=== PATIENT | female | born 1995 | race Caucasian/White ===

== ENCOUNTER 2018-04-02 17:11 | Outpatient (REF) | payer SELFPAY ==
[2018-04-02 20:41] LABS: *AMPHETAMINES SCREEN URINE Negative (Negative); *BARBITURATES SCREEN URINE Negative (Negative); *BENZODIAZEPINES SCREEN URINE Negative (Negative); Cannabinoids THC POSITIVE (Negative); Cocaine Screen,Urine Negative (Negative); METHADONE URINE SCREEN Negative (Negative); OPIATES URINE SCREEN Negative (Negative); Tricyclic Antidepressants Negative (Negative)
[2018-04-07 14:18] LABS: Buprenorphine Negative; Norbuprenorphine Negative
== END 2018-04-02 17:12 ==
LOC: LBN 17:11
PROVIDERS: Visit Provider Midwife
DX: Z34.91 Encounter for supervision of normal pregnancy, unspecified, first trimester (principal)
CPT/HCPCS: 80307; 87077; 87086

== ENCOUNTER 2019-11-09 10:40 | Emergency (ER) | payer MEDICAID, SELFPAY ==
[2019-11-09 10:44] VITALS: BP 139/91; PULSE 88; TEMP 36.5; O2SAT 96
--- NOTE | 2019-11-09 10:53 | W.ED.GENAD ---
Discharge Plan Disposition Patient Disposition: HOME Condition: Improving Discharge Details Chief Complaint: Sorethroat Clinical Impression: Exudative pharyngitis Primary Care Provider: None,None ED Provider: Matthew Cruz Home Meds and New Rx's Prescriptions: New penicillin V potassium 500 mg tablet 500 mg PO QID 10 Days Qty: 40 RF: 0 Cepacol Sore Throat (aster-men) 15-2.6 mg lozenge 1 john MM Q2H PRNQty: 16 RF: 0 No Action citalopram [Celexa] 40 MG tablet 40 mg PO DAILY RF: 0 acetaminophen 500 mg Tablet 1,000 mg PO QID PRNRF: 0 Discharge Instructions Instructions: Pharyngitis (ED) Additional Instructions: Continue small, frequent sips of fluids to maintain hydration. May use popsicles to soothe the throat. Please take penicillin as prescribed. Tylenol and ibuprofen as needed for pain. Return if you have difficulty swallowing, begin to drool, or any other acute concerns. Medical Decision Making 24-year-old female presents with day 2 of sore throat and mild bilateral ear pain. Her exam is consistent with acute exudative pharyngitis without evidence of sinusitis or otitis media. States she has tolerated penicillin in the past and and therefore I will place her on a course of penicillin for exudative pharyngitis. She is stable and appropriate for outpatient management. She understands indications to seek reevaluation. HPI General Mode of arrival: ambulatory. Date/Time Provider Initiated Documentation: 11/09/19 10:43. Limitations to Documentation: no limitations. Information obtained by: patient. History of Present Illness 24 year old F presents to the emergency department with the chief complaint of Sore throat for 2 days, described as moderate, Quality is described as dull and constant, and is localized to the mouth. Patient reports no radiation. Patient started experiencing this hour(s) and it has been constant. No relieving factors improve symptom(s), No exacerbating factors reported . Patient notes other (No change to voice, no drooling); denies loss of appetite and nausea/vomiting. Patient did receive the following treatments prior to arrival, other (Acetaminophen) Related Data Home Medications Medication Instructions Recorded Confirmed citalopram [Celexa] 40 mg PO DAILY tab-cap 02/20/18 11/09/19 acetaminophen 1,000 mg PO QID PRN 11/09/19 11/09/19 benzocaine-menthol [Cepacol Sore 1 john MM Q2H PRN #16 each 11/09/19 Throat (aster-men)] penicillin V potassium 500 mg PO QID 10 Days #40 tab 11/09/19 Previous Rx's Medication Instructions Recorded benzocaine-menthol [Cepacol Sore 1 john MM Q2H PRN #16 each 11/09/19 Throat (aster-men)] penicillin V potassium 500 mg PO QID 10 Days #40 tab 11/09/19 Allergies Allergy/AdvReac Type Severity Reaction Status Date / Time cephalexin monohydrate Allergy Severe DIFFICULTY Unverified 11/09/19 10:47 [From Keflex] BREATHING General Stated Complaint: Sorethroat ANGELA: 4 Review of Systems Narrative: 6 systems reviewed and otherwise negative. No known sick contacts or travel [facility] Medical History Anxiety and depression Seasonal asthma Surgical History (Updated 05/21/18 @ 14:[address] [place]) Dilation and curettage (04/02/08) Termination of at 9 wks. Family History Grandmother Essential hypertension Great grandmother Breast cancer Half sister Age: 6 Cystic fibrosis carrier Mother Age: 47 COPD (chronic obstructive pulmonary disease) Asthma, bronchitis Father No problems noted. Brother Age: 19 No problems noted. Social History Smoking/Tobacco Use Status: Former Tobacco Use Alcohol Intake: never Drug use: Never Substance use type: does not use Do you feel safe at home: Yes Do you feel safe in your relationship?: Yes Exam Narrative Exam Narrative: GEN: awake, alert, oriented 3. Pleasant, well groomed, interactive. HEAD: Normocephalic, atraumatic ENT: Mucous membranes moist, oropharynx bilaterally swollen and erythematous tonsillar pillars with overlying white exudate. The uvula is midline, no asymmetry, tympanic membranes poorly visualized but no evidence of erythema appreciated,, External ear exam unremarkable EYES: PERRL, EOMI NECK: Full ROM, no CLAUDIO, no menigismus CHEST/RESP: Nontender, clear to auscultation bilateral, no wheeze/rhonchi/rales CARDIOVASCULAR: RRR, no murmur, rub julieta. 2+ Rad pulse bilateral EXT: Full ROM, no edema, no rash Neuro: Grossly normal neurologic exam, conversant, interactive. Psych: Speech fluent, thoughts congruent, affect normal Course Vital Signs Vital signs: Vital Signs Temperature 36.5 C 11/09/19 10:44 Pulse 88 11/09/19 10:44 Blood Pressure 139/91 H 11/09/19 10:44 Pulse Oximetry 96 11/09/19 10:44 Temperature 36.5 C 11/09/19 10:44 Temperature Source Skin 11/09/19 10:44 Pulse 88 11/09/19 10:44 Blood Pressure 139/91 H 11/09/19 10:44 Blood Pressure Position Sitting 11/09/19 10:44 Pulse Oximetry 96 11/09/19 10:44 Oxygen Delivery Method Room Air 11/09/19 10:44 Oxygen Flow Rate 0 11/09/19 10:44 Pain Level 6 11/09/19 10:44
[2019-11-09] MEDS: Penicillin V POTASSIUM 500 MG TAB PO (11:01)
[2019-11-09] MEDS: Ibuprofen 800 MG TAB PO (11:01)
== END 2019-11-09 11:15 | disposition home or self-care (01) ==
PROVIDERS: Emergency Provider Emergency Medicine
DX: J02.9 Acute pharyngitis, unspecified (principal)
CPT/HCPCS: 99283

== ENCOUNTER 2023-02-16 00:49 | Emergency (ER) | payer MEDICAID, SELFPAY ==
[2023-02-16 00:52] VITALS: BP 143/94; PULSE 118; RESP 20; TEMP 37.6; O2SAT 97
--- NOTE | 2023-02-16 00:56 | ED.GENADUL_ITS ---
Discharge Plan Disposition Patient Disposition: Home Condition: Stable Discharge Details Clinical Impression: Strep pharyngitis Primary Care Provider: None,None ED Provider: Hermelinda Mark Home Meds and New Rx's Prescriptions: New penicillin V potassium 500 mg tablet 500 mg PO BID Qty: 20 0RF Discharge Instructions Instructions: Strep Throat (ED) Additional Instructions: Push plenty of fluids. Alternate ibuprofen and Tylenol as needed for fever and pain. Popsicles and Jell-O will help as well. Return to ED for inability to swallow or difficulty breathing. Discharge Data Discharge Date/Time-TO BE ENTERED AT DEPARTURE: 02/16/23 02:02 Medical Decision Making Patient told me that she had funny neck discomfort after taking Keflex. She has never had a problem with penicillin. Gave her a prescription for Pen-VK and told her to take Tylenol and ibuprofen as needed for pain. Fluids, Jell-O, popsicles, and other soft foods until improved. She will return for inability to swallow or difficulty breathing. Lab Data Lab results reviewed: Yes I reviewed the patient's lab results. Lab results narrative: Rapid strep positive HPI General Date/Time Provider Initiated Documentation: 02/16/23 00:56 . HPI Narrative: This 28-year-old female patient presents with a chief complaint of sore throat that began yesterday. She said it started off as scratchy but is now quite bad. It is sharp in nature. She reports headache shot and she does not. She reports a fever at home. Took some ibuprofen at 1730 which helped a little bit. The pain has been constant. She has no difficulty breathing and is able to take food and fluids. She denies chest or abdominal pain. Related Data Home Medications Medication Instructions Recorded Confirmed penicillin V potassium 500 mg 500 mg PO BID #20 tabs 02/16/23 tablet Previous Rx's Medication Instructions Recorded penicillin V potassium 500 mg 500 mg PO BID #20 tabs 02/16/23 tablet Allergies Allergy/AdvReac Type Severity Reaction Status Date / Time cephalexin monohydrate Allergy Severe DIFFICULTY Unverified 02/16/23 00:59 [From Keflex] BREATHING General ANGELA: 4 Review of Systems Constitutional Constitutional: Reports chills (No rigors), Reports fever(s) and Reports headache(s) Eyes Eyes: Denies blurry vision and Reports other (no redness) ENT Ears, Nose, Mouth, and Throat: Reports otalgia, Reports headache(s), Denies nasal congestion, Denies nasal discharge, Denies neck pain and Reports sore throat Cardiovascular Cardiovascular: Denies chest pain, Denies palpitations and Denies dyspnea Respiratory Respiratory: Denies dyspnea Gastrointestinal Gastrointestinal: Denies abdominal pain Genitourinary Genitourinary: Denies dysuria Musculoskeletal Musculoskeletal: Denies myalgias, Denies muscle weakness, Denies neck pain and Denies numbness Integumentary/Breasts Skin/Breast: Denies rash Neurologic Neurologic: Reports headache(s) and Denies numbness Endocrine Endocrine: Denies palpitations PFSH All Active Problems Strep pharyngitis (Acute) Medical History Anxiety and depression Seasonal asthma Surgical History Dilation and curettage (04/02/08) Termination of at 9 wks. Family History Grandmother Essential hypertension Great grandmother Breast cancer Half sister Age: 10 Cystic fibrosis carrier Mother Age: 50 COPD (chronic obstructive pulmonary disease) Asthma, bronchitis Father No problems noted. Brother Age: 22 No problems noted. Social History Smoking/Tobacco Use Status: Former Tobacco Use Smoking risk assessment performed?: Yes Alcohol Intake: never Drug use: Never Substance use type: does not use Do you feel safe at home: Yes Do you feel safe in your relationship?: Yes Exam Const General: no acute distress, well developed, well groomed and not in acute distress Nutritional Appearance: well nourished Orientation: alert and oriented x3 HENMT Head: normocephalic and atraumatic Ears: external ears normal and other (TMs occluded with cerumen bilaterally) Mouth: oropharynx normal and moist mucous membranes Throat: posterior oropharynx abnormal (Red but no exudate) Eyes Conjunctivae: conjunctivae normal Neck Neck: full ROM, supple and lymphadenopathy (Shotty anterior chain) Chest Chest: normal inspection of the chest Resp Effort & Inspection: normal respiratory effort Auscultation: clear to auscultation bilaterally Cardio Rate: regular rate Rhythm: regular rhythm Heart Sounds: no murmurs and no rubs GI Inspection: normal to inspection Palpation: soft, no splenomegaly, nontender and other (non distended) Auscultation: normal bowel sounds Skin General skin exam: no rashes or lesions noted and other (pink, warm, dry) Neuro General: patient alert, patient awake and patient oriented x3 Speech: speech normal Motor: other (PURCELL) Sensory Exam: no sensory deficits noted Extrem General: normal to inspection, full ROM and pedal edema present Psych Mental Status: mental status grossly normal Speech and Movement: speech and movement normal Affect: normal affect
[2023-02-16] MEDS: Penicillin V POTASSIUM 500 MG TAB PO (01:39)
[2023-02-16] MEDS: Ibuprofen 600 MG TAB PO (01:39)
[2023-02-16 01:56] VITALS: BP 142/84; PULSE 103; RESP 20; TEMP 37; O2SAT 99
== END 2023-02-16 02:02 | disposition home or self-care (01) ==
PROVIDERS: Emergency Provider Emergency Medicine
DX: J02.0 Streptococcal pharyngitis (principal)
CPT/HCPCS: 87637; 87880; 99283; 99284